=== PATIENT | male | born 2005 | race Caucasian/White ===

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

== ENCOUNTER 2024-02-17 12:56 | Emergency (ER) | payer OTHER, SELFPAY ==
--- NOTE | 2024-02-17 12:57 | ED.SKABFB ---
HPI - Skin/Abscess/Foreign Bdy General Chief complaint: Skin/Abscess/Foreign Body Stated complaint: Rash Time Seen by Provider: 02/17/24 12:57 Source: patient Mode of arrival: ambulatory Limitations: no limitations History of Present Illness HPI narrative: Nila is a 18-year-old male patient presenting to the clinic today with complaints of a rash to the head of his penis. He reports he noticed this rash 1-2 days ago. States that the rash is very itchy and red. He denies any penile discharge. Denies any concern for any sexually transmitted infections. Denies any urinary symptoms. Also is requesting medication refill for acid reflux medication. Related Data Home Medications Medication Instructions Recorded Confirmed No Home Medications 03/31/22 02/17/24 Allergies Allergy/AdvReac Type Severity Reaction Status Date / Time Sulfa (Sulfonamide Allergy Unknown HIVES Verified 02/17/24 12:59 Antibiotics) Review of Systems Review of Systems: Pertinent positives per HPI. Patient denies any fever, chills, rash, headache, visual changes, dizziness, cough, runny nose, sore throat, shortness of breath, chest pain, palpitations, nausea, vomiting, diarrhea, constipation, abdominal pain, or any urinary issues. 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 There is no relevant family history pertinent to the patient complaint. Exam Narrative: General: Well-developed, well nourished, in no apparent distress. Head: Normocephalic, atraumatic. Cardio: Regular rate and rhythm, s1 and s2 normal, no murmur appreciated. Resp: Clear to auscultation bilaterally, no rhonchi, rales, wheezing or rubs. Abdomen: Soft, pliable, bowel sounds present in all quadrants, non-tender to palpation, no organomegly, no CVAT tenderness. : Uncircumcised male without corneal adhesions, itchy rash- redness and mild swelling to the glans penis with a glistening/satellite lesions to the glans penis Course Course Emergency Course: Portions of this record may have been created with voice recognition software. Level of Care: Express Care Visit Vital Signs Vital signs: Vital Signs Temperature 37.3 C 02/17/24 13:10 Pulse Rate 63 02/17/24 13:10 Respiratory Rate 16 02/17/24 13:10 Blood Pressure 118/69 02/17/24 13:10 Pulse Oximetry 100 02/17/24 13:10 Temperature 37.3 C 02/17/24 13:14 Pulse Rate 63 02/17/24 13:14 Respiratory Rate 16 02/17/24 13:14 Blood Pressure 118/69 02/17/24 13:14 Pulse Oximetry 100 02/17/24 13:14 Vital signs reviewed MDM - Skin/Abscess/Foreign Bdy MDM Narrative Medical decision making narrative: At the time of visit patient is resting comfortably on the exam table. Patient appears to be nontoxic. Plan: I suspect patient has candidal balanitis. Prescription for clotrimazole cream was sent to the pharmacy. Patient is also requesting a medication refill for acid reflux. He states he used to be on omeprazole. Will place the patient on 20 mg of omeprazole daily. Grade diet was reviewed. Supportive measures were discussed with the patient and they voiced understanding discharge instructions and agrees to treatment plan. Return precautions reviewed Discharge Plan Discharge Clinical Impression: Balanitis Gastroesophageal reflux disease Qualifiers: Esophagitis presence: without esophagitis Qualified Code(s): K21.9 - Gas
[2024-02-17 13:10] VITALS: BP 118/69; PULSE 63; RESP 16; TEMP 37.3; O2SAT 100
[2024-02-17 13:14] VITALS: BP 118/69; PULSE 63; RESP 16; TEMP 37.3; O2SAT 100
== END 2024-02-17 13:27 | disposition home or self-care (01) ==
PROVIDERS: Emergency Provider Nurse Practitioner Family
DX: N48.1 Balanitis (principal); K21.9 Gastro-esophageal reflux disease without esophagitis
CPT/HCPCS: 99213; G0463

== ENCOUNTER 2024-04-08 10:41 | Emergency (ER) | payer OTHER, SELFPAY ==
[2024-04-08 10:57] VITALS: BP 127/84; PULSE 73; RESP 16; TEMP 36.6; O2SAT 100
--- NOTE | 2024-04-08 10:59 | ED.GENADULT ---
HPI - General Adult General Chief complaint: Upper Respiratory Infection Stated complaint: Sore Throat Time Seen by Provider: 04/08/24 10:59 Source: patient, RN notes reviewed and old records reviewed Mode of arrival: ambulatory Limitations: no limitations History of Present Illness HPI narrative: 18-year-old male to Express Care for complaint of left-sided throat pain for 5 days that is worse with Swallowing. Patient denies pertinent medical history, difficulty swallowing, fever, cough, shortness of breath. Patient has not attempted to treat at home. Patient able to tolerate fluids by mouth. Respirations even and nonlabored. Patient in no acute distress. Related Data Allergies Allergy/AdvReac Type Severity Reaction Status Date / Time Sulfa (Sulfonamide Allergy Unknown HIVES Verified 04/08/24 11:06 Antibiotics) Review of Systems Review of Systems: All systems reviewed & are unremarkable except as noted in HPI and below Constitutional: Constitutional: Reports no additional constitutional complaints Eyes: Eyes: Reports no additional eye complaints ENT: Reports as per HPI and Reports sore throat ( Left-sided) Cardiovascular: Cardiovascular: Reports no additional cardiovascular complaints, Denies chest pain and Denies dyspnea Respiratory: Respiratory: Reports no additional respiratory complaints, Denies cough and Denies dyspnea Musculoskeletal: Musculoskeletal: Reports no additional musculoskeletal complaints Neurologic: Reports system reviewed and no additional complaints, except as documented Psychiatric: Psychiatric: Reports no additional psychiatric complaints PMFSH Social History Social History Smoking status: Never smoker Alcohol intake: never Substance use: never Living arrangements: with family Occupation/Education: occupation 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 There is no relevant family history pertinent to the patient complaint. Exam Const: General: cooperative, no acute distress, alert, uncomfortable and well nourished Nutritional Appearance: well nourished Orientation/consciousness: patient oriented x3 Limitations: no limitations HENMT: Head: normal to inspection Ears: external ears normal Face/Nose/Sinus: Normal external nose present, Normal nares present, normal facial exam, No erythema and No edema Face and sinus: normal facial exam, no erythema and no edema Mouth: Yes Normal oral and palatal mucosa present Throat: uvula midline, posterior oropharynx abnormal erythema and exudates and no uvular edema Eyes: General: appearance normal, both eyes and all related structures Neck: Neck: normal visual inspection, full ROM and no meningeal signs Lymphatic: no lymphadenopathy noted and no lymphedema noted Chest: Chest palpation & inspection: normal inspection of the chest Resp: Effort & Inspection: normal respiratory effort and able to speak in complete sentences Auscultation: clear to auscultation bilaterally Cardio: Jugular venous distension: no JVD Rate: regular rate Rhythm: regular rhythm Back/Spine/Pelvis: Cervical Spine: cervical ROM normal Skin: General skin exam: normal color, no rashes or lesions noted and turgor normal Neuro: General: patient oriented x3, gait normal, moves all extremities and no meningeal signs Speech: normal speech Gait exam (Neuro): Normal gait present Extrem: General: normal to inspection, full ROM and capillary refill normal Psych: Appearance: grossly normal and well kempt Course Course Emergency Course: Some parts of this dictation were generated by voice
[2024-04-08 11:32] LABS: EDSTREPNEGPOS1 Negative
== END 2024-04-08 11:39 | disposition home or self-care (01) ==
PROVIDERS: Emergency Provider Nurse Practitioner Family; PCP Family Medicine
DX: J02.9 Acute pharyngitis, unspecified (principal)
CPT/HCPCS: 87081; 87880; 99213; G0463